=== PATIENT | female | born 1995 | race Caucasian/White ===

== ENCOUNTER 2022-05-17 11:07 | Emergency (ER) | payer OTHER, SELFPAY ==
[2022-05-17 11:09] VITALS: BP 143/77; PULSE 121; RESP 20; TEMP 36.4; O2SAT 100; BMI 23.3
[2022-05-17 11:12] VITALS: PULSE 106; RESP 15; O2SAT 100
--- NOTE | 2022-05-17 11:24 | EKG12_ITS ---
Test Reason : ALLERGIC REACTION Blood Pressure : / mmHG Vent. Rate : 085 BPM Atrial Rate : 085 BPM P-R Int : 144 ms QRS Dur : 086 ms QT Int : 374 ms P-R-T Axes : 011 082 030 degrees QTc Int : 445 ms Normal sinus rhythm Normal ECG Confirmed by ESME HUBER, JERALD ([id number]), graphic editor DAVID MCCANN ([id number]) on 05/19/2022 10:44:11 AM Referred By: Confirmed By:JERALD VICTORIA MD
--- NOTE | 2022-05-17 11:25 | EX.ED.DYSGE1 ---
HPI History of Present Illness Chief Complaint: Allergic Reaction Informant: patient Onset/Context/Timing Onset: Days (12 days) Narrative Narrative: Patient presents due to concern for allergic reaction. She was stung by a bee 12 days ago. She was stung once on her left arm and twice on her left ankle. She states several days after the stings her left arm was still red and swollen and her left ankle was itchy. She woke up this morning feeling okay, but then developed a near syncopal sensation. She noted there was an area of red blotchiness on the posterior left forearm. She did take Benadryl prior to arrival. She denies shortness of breath or throat tightness. 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 None currently. ; Denies chest pain Respiratory/Chest Respiratory/Chest: Denies cough or dyspnea Gastrointestinal Gastrointestinal: Denies abdominal pain, diarrhea, nausea or vomiting Genitourinary Genitourinary ED: Denies dysuria Musculoskeletal Musculoskeletal: Denies back pain or extremity pain Integumentary Reports rash; Denies Abrasions Neurologic Neurologic: Denies headache(s) or weakness Psychiatric Psychiatric: Denies anxiety or depression Allergic/Immunologic Allergic/Immunologic ED: Denies lip swelling or urticaria EXAM Physical Exam Const Vital Signs: 05/17/22 11:09 05/17/22 11:12 05/17/22 12:25 Temperature 97.5 F L Temperature Source Temporal Pulse Rate 121 H 106 H 81 Respiratory Rate 20 H 15 14 Blood Pressure 143/77 H 128/71 H Blood Pressure Mean 99 90 Pulse Ox 100 100 100 Oxygen Delivery Method Room Air Room Air Room Air Positive well nourished and well developed General Appearance ED: well developed HEENT Reports normocephalic and head/scalp atraumatic Eyes PERRL and EOMs intact bilaterally Neck supple Chest Wall inspection of chest normal and palpation of chest normal Resp normal respiratory effort and clear to auscultation bilaterally Cardio regular rate and regular rhythm GI normal to inspection, nondistended, normoactive bowel sounds Palpation: soft Extremity Extremity Narrative: 7 x 5 cm area of patchy erythema on the posterior proximal left forearm. This was not the site of her left upper extremity sting. This is not appear consistent with a cellulitis. Skin is not raised. 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 EKG, lab work obtained. Patient given IV fluids. She had taken Benadryl prior to arrival. Lab Data Attestation: I reviewed the patient's lab results. Labs: Laboratory Results - last 24 hr 05/17/22 05/17/22 05/17/22 11:40 11:40 11:40 WBC 9.9 RBC 4.53 Hgb 14.1 Hct 42.2 MCV 93.2 MCH 31.1 MCHC 33.4 RDW Std Deviation 41.3 RDW Coeff of Pamela 11.9 Plt Count 362 MPV 9.3 Immature Gran % (Auto) 0.500 Neut % (Auto) 58.2 Lymph % (Auto) 27.7 [place] % (Auto) 7.8 Eos % (Auto) 4.8 Baso % (Auto) 1.0 Absolute Neuts (auto) 5.8 Absolute Lymphs (auto) 2.75 Nucleated RBC % 0 Sodium 139 Potassium 3.4 L Chloride 106 Carbon Dioxide 22.0 Anion Gap 11 BUN 10 Creatinine 1.07 H Estim Creat Clear Calc 73.93 Est GFR (MDRD) Af Amer 79 Est GFR (MDRD) Non-Af 65 BUN/Creatinine Ratio 9.3 L Glucose 108 H Calcium 9.1 Magnesium 2.2 Serum , Qual NEGATIVE EKG Initial EKG: Attestation: I personally reviewed and interpreted this EKG as follows: Interpretation: Sinus Rhythm (Sinus 85 with no acute ischemia.) Treatment and Re-Evaluation Narrative: On repeat evaluation patient reports feeling much improved. Heart rate is in the 70s at the time of my exam. CBC is unremarkable. Chemistry studies significant only for potassium slightly low at 3.4. This is replaced with oral potassium. Magnesium is normal. test negative. I advised the patient that I am unsure this is all related to an allergic reaction from her bee stings as it has been 12 days. The erythema on her arm does not appear consistent with a cellulitis or acute infection. I did recommend Benadryl or Pepcid to help with allergic symptoms as Pepcid would not make her sleepy. She voices understanding and agreement. She is comfortable with treatment at home and return instructions have been provided. Discharge Plan Triage Chief Complaint: Allergic Reaction ED Provider: Conchita Proctor Dx/Rx/DC Orders Clinical Impression: Palpitations, Allergic reaction Instructions: ED BEE STING General Allergic Rxn, ED Palpitations Prescriptions: No Action drospirenone-ethinyl estradiol [Harleyvi (28)] 3-0.02 mg tablet 1 tab PO QDAY Qty: 84 1RF Primary Care Provider: Leah Michaud Referrals: Leah Michaud, PATENT AGENT-C [Primary Care Provider] - 5-7 Days Disposition Disposition: Home, Self Care
[2022-05-17] MEDS: 0.9% Normal Saline 1,000 ML 150 ML IV (11:39)
[2022-05-17 11:51] LABS: Absolute Lymphocyte Count 2.75 X10^3/uL (0.83-4.51); Absolute Neutrophil Count 5.8 X10^3/uL (2.0-7.7); Eosinophil# 0.48 X10^3/uL; Eosinophils% 4.8 % (0-5); Hematocrit 42.2 % (37-47); Hemoglobin 14.1 g/dL (12.0-15.0); Lymphocyte # 2.75 X10^3/ul (0.83-4.51); Lymphocyte % 27.7 % (19-41); Mean Corp Hgb Conc 33.4 g/dL (32-36); Mean Corpuscular Hgb 31.1 pg (27.0-32.0); Mean Corpuscular Volume 93.2 fL (81-99); Mean Platelet Vol. 9.3 fl (6.2-12.0); Monocyte# 0.77 X10^3/uL; Monocyte% 7.8 % (0-10); NRBC Flagged by Analyzer 0 % (0-5); Neutrophil # 5.78 X10^3/uL (2.7-7.7); Neutrophil % 58.2 % (47-70); Platelet Count 362 K/mm3 (150-450); RBC Distribution Width CV 11.9 % (11.6-14.6); RBC Distribution Width SD 41.3 fl (35.1-43.9); Red Blood Count 4.53 M/mm3 (4.2-5.4); White Blood Count 9.9 K/mm3 (4.4-11.0)
[2022-05-17 11:55] LABS: Internal QC Validated? YES +Cl - CLEAR BKGD; Pregnancy, Serum, hCG Quali. NEGATIVE Negative
[2022-05-17 12:00] LABS: Anion Gap 11 (5-15); BUN 10 mg/dL (7-18); BUN/Creat Ratio 9.3 RATIO (10-20); Calcium,Total 9.1 mg/dL (8.5-10.1); Chloride 106 mmol/L (98-107); Creatinine, Serum 1.07 mg/dL (0.55-1.02); EST Glomerular Filtration Rate 65 mL/min (>60); Est Glom Filt Rate - Afr Amer 79 mL/min (>60); Estimated Creatinine Clearance 73.93 ml/min; Glucose 108 mg/dL (74-106); Magnesium 2.2 mg/dL (1.6-2.6); Potassium 3.4 mmol/L (3.5-5.1); Sodium Level 139 mmol/L (136-145)
[2022-05-17] MEDS: Potassium Chloride Oral Tablet 20 MEQ 40 MEQ PO (12:21)
[2022-05-17 12:25] VITALS: BP 128/71; PULSE 81; RESP 14; O2SAT 100
[2022-05-17 12:44] VITALS: BP 128/61; PULSE 83; RESP 16; O2SAT 100
== END 2022-05-17 13:14 | disposition home or self-care (01) ==
PROVIDERS: Emergency Provider Emergency Medicine; PCP Nurse Practitioner Family; Visit Provider Emergency Medicine
DX: R00.2 Palpitations (principal); T78.40XA Allergy, unspecified, initial encounter; X58.XXXA Exposure to other specified factors, initial encounter
CPT/HCPCS: 80048; 83735; 84703; 85025; 93005; 99285; J7030; A4216

== ENCOUNTER 2024-02-11 07:00 | Inpatient (IN) | payer OTHER, SELFPAY ==
[2024-02-11] VITALS (23 sets, daily range): BP systolic 120–142; BP diastolic 69–90; PULSE 65–116; RESP 16–18; TEMP 36.8–37.8; O2SAT 96–99; BMI 28.2
[2024-02-11] MEDS: Lactated Ringers 1,000 ML 50 ML IV (07:20)
--- NOTE | 2024-02-11 07:21 | PCM.HP.OB ---
HPI - General General Date of Admission: 02/11/24 Date of Service: 02/11/24 Chief Complaint: Labor HPI Narrative NIKHIL REECE, is a 28 F who presents with frequent contractions at 7 cm. 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 0 Elective abortions Hx Para Spontaneous abortions Hx # Term Pregnancies Ectopic pregnancies Hx # Pregnancies Multiple births # of living children NST FHR Rate Baby A Baseline: 125 Variability:: Moderate Accelerations:: 15 x 15 Decelerations:: None NST Reactive:: Yes FHR Category:: Category I Uterine Activity:: q 2 ROS Constitutional Constitutional: Denies fatigue, fever(s) or malaise Eyes Eyes: Denies change in vision ENT HEENT: Denies dizziness or headache(s) Cardiovascular Cardiovascular: Denies chest pain, dyspnea or lightheadedness Respiratory/Chest Respiratory/Chest: Denies cough or dyspnea Gastrointestinal Gastrointestinal: Denies change in bowel habits Genitourinary Genitourinary: Denies burning urination or genital lesions Integumentary Integumentary: Denies rash Neurologic Neurologic: Denies confusion, dizziness, headache(s), numbness or weakness Vital Signs Vital Signs Vital Signs: 02/11/24 06:52 02/11/24 06:52 02/11/24 06:54 Pulse Rate 112 H Blood Pressure 120/84 H BP Systolic 120 BP Diastolic 84 Pulse Ox 99 02/11/24 06:54 Pulse Rate 94 Blood Pressure BP Systolic BP Diastolic Pulse Ox Physical Exam Const alert and no apparent distress General Appearance: cooperative HEENT normocephalic Resp normal respiratory effort GI soft to palpation GI Narrative: gravid, nontender, appropriate for gestational age Extremity no calf tenderness General Extremity: edema Skin no wounds Rashes: No rashes noted Psych activity/motor behavior normal Labs Labs Labs: Hct 42.2 % (37-47) Hgb 14.1 g/dL (12.0-15.0) Assessment & Plan (1) 38 weeks gestation of : (2) Active labor at term: PLAN: Plan Admit for labor
[2024-02-11 07:50] LABS: Absolute Lymphocyte Count 1.94 X10^3/uL (0.83-4.51); Absolute Neutrophil Count 8.8 X10^3/uL (2.0-7.7); Basophil# 0.09 X10^3/uL; Basophil% 0.8 % (0-1); Eosinophil# 0.09 X10^3/uL; Eosinophils% 0.8 % (0-5); Hematocrit 38.8 % (37-47); Lymphocyte # 1.94 X10^3/ul (0.83-4.51); Lymphocyte % 16.5 % (19-41); Mean Corp Hgb Conc 33.5 g/dL (32-36); Mean Corpuscular Hgb 30.7 pg (27.0-32.0); Mean Corpuscular Volume 91.7 fL (81-99); Mean Platelet Vol. 11.4 fl (6.2-12.0); Monocyte# 0.73 X10^3/uL; Monocyte% 6.2 % (0-10); NRBC Flagged by Analyzer 0 % (0-5); Neutrophil # 8.83 X10^3/uL (2.7-7.7); Neutrophil % 75.1 % (47-70); Platelet Count 280 K/mm3 (150-450); RBC Distribution Width CV 13.2 % (11.6-14.6); RBC Distribution Width SD 43.8 fl (35.1-43.9); Red Blood Count 4.23 M/mm3 (4.2-5.4); White Blood Count 11.8 K/mm3 (4.4-11.0)
[2024-02-11 08:25] LABS: Syphilis Antibodies Non-reactive
--- NOTE | 2024-02-11 12:53 | PCM.PN.BLA ---
Progress Note late entry: pt seen at bedside at 12:00pm , pushing with nurse Cruz Brandon in room. /0 station, good maternal pushing efforts. will continue pushing at this time, will reevaulate after OR case or sooner if indicated.
[2024-02-11] MEDS: Oxytocin 10 UNITS/ML Vial IM (13:44)
--- NOTE | 2024-02-11 13:55 | EX.PCM.OBRPT ---
Vaginal Delivery Maternal Presentation Maternal Presentation: Active Labor Operative Information Date of Procedure: 02/11/24 Pre-Operative Diagnosis: 38.4 weeks, active labor Post-Operative Diagnosis: same, live female Surgery / Procedure Performed: Spontaneous Vaginal Delivery Estimated Blood Loss: 150 Time of Delivery: 13:34 Findings Description of Procedure: Patient progressed to fully dilated. Good maternal pushing efforts delivered the 's head in the ROP position followed by the anterior shoulder and posterior shoulder without delay of the rest the infant's body. The infant was then placed on the mother's chest for immediate skin to skin. Delayed cord clamping was performed. Cord was then clamped and cut. Infant was vigorous at time of delivery. Due to her IV coming out immediately prior to delivery IM Pitocin was given. The placenta was delivered spontaneously intact without complication. Second-degree perineal laceration was appreciated. 12 cc of 1% lidocaine was injected to the perineal laceration for pain control prior to repair. It was repaired using 2-0 Vicryl and 3-0 Rapide in the usual fashion. Patient tolerated procedure well. Hemostasis was appreciated. Fundus was firm. Presentation: Vertex and ROP Amniotic Membrane Rupture Type: Spontaneous Amniotic Fluid Description: Clear Placental Delivery Description: Spontaneous Placenta Disposition: [facility] Specimen(s) Removed: placenta Cord Vessel Description: 3 Vessels Cord Entanglement: None A Gender: Female (1 minute): 9 (5 minute): 9 Delayed Cord Clamping: Yes Post Vaginal Delivery Medications Given After Delivery: IM Pitocin Episiotomy Description: None Laceration: Perineal Extension/lac and 2nd degree Complication Complications: None
[2024-02-11] MEDS: Acetaminophen 500 MG Tablet 1000 MG PO (20:51)
[2024-02-11] MEDS: Acyclovir 200 MG Capsule 400 MG PO (21:48)
[2024-02-12] VITALS (8 sets, daily range): BP systolic 119–133; BP diastolic 73–78; PULSE 69–81; RESP 16; TEMP 36.4–36.7; O2SAT 96–98
[2024-02-12] MEDS: Acyclovir 200 MG Capsule 400 MG PO ×2 (05:15→15:37)
--- NOTE | 2024-02-12 08:14 | PCM.PROGNOTE ---
Subjective Subjective patient seen at bedside, doing well. Patient reports good pain control. lochia mild. breast feeding w/o concerns. Pt requesting dc home today. Objective Data Objective Data Vital Signs: Vital Signs Temp Pulse Resp BP Pulse Ox O2 Del Method 98.0 F 74 16 122/74 H 96 Room Air 02/12/24 03:28 02/12/24 03:29 02/12/24 03:28 02/12/24 03:28 02/12/24 03:29 02/12/24 03:28 Oxygen Delivery Method Room Air Weight: 79.379 kg Body Mass Index (BMI) 28.2 Intake & Output: Intake and Output for Last 24 Hours 02/10/24 02/11/24 02/12/24 23:59 23:59 23:59 Intake Total 854.17 / 854.17 Output Total 250 / 250 Balance 604.17 / 604.17 Lab / Micro Data 02/11/24 07:20 Labs: Laboratory Results - last 24 hr 02/11/24 07:20: Syphilis Total Ab Non-reactive, Blood Type A POSITIVE, Antibody Screen NEGATIVE Physical Exam Const alert and oriented x3 General Appearance: cooperative HEENT normocephalic Neck General: normal visual inspection GI soft to palpation and non-distended GI Narrative: Fundus firm Extremity normal to inspection and no calf tenderness Skin no rashes or lesions noted Neuro oriented x3 and CN's II-XII intact bilaterally Psych mental status grossly normal Assessment & Plan Assessment/Plan (1) Vaginal delivery: PLAN: Plan PPD#1 , Doing well Routine care pain mgmt ambulation dc home
--- NOTE | 2024-02-12 08:15 | DCINST_ITS ---
Discharge Instructions Diet Discharge Diet: No restrictions Activity May resume sexual activity in: 6-8 weeks Dressing / Incision Call your doctor if you observe: Fever of 101 or Higher, Inability to urinate, Using more than 1 pad per hour and Uncontrolled pain Follow Up Care Please Follow Up With: Kathrin Israel MD When: 1-2 weeks post and again at 6 weeks post . [phone] Test Results: Test results from this visit will be discussed in further detail at your follow- up appointment, if applicable. Discharge Plan Admission Admit Date/Time: 02/11/24 07:00 Attending Provider: Kathrin Israel Primary Care Provider: Leah Michaud Discharge Orders/Prescriptions Prescriptions: Continued acyclovir 400 mg tablet 400 mg PO TID Referrals / Follow Up: Leah Michaud NP-C [Primary Care Provider] - Disposition Disposition (needs filled in before D/C Order can be placed): Home, Self Care
[2024-02-12] MEDS: Acetaminophen 500 MG Tablet 1000 MG PO (08:26)
[2024-02-12] MEDS: Senna/Docusate Sodium 1 Tablet PO (08:27)
== END 2024-02-12 16:50 | disposition home or self-care (01) | DRG 807 ==
LOC: WPOUT 07:02 → WP 07:02
PROVIDERS: Admitting Provider Obstetrics & Gynecology; PCP Nurse Practitioner Family; Referring Provider Obstetrics & Gynecology; Visit Provider Obstetrics & Gynecology
DX: O70.1 Second degree perineal laceration during delivery (principal); Z37.0 Single live birth; Z3A.38 38 weeks gestation of pregnancy
CPT/HCPCS: 59050; 85025; 86780; 86850; 86900; 86901; 99221; J7120; G0378